=== PATIENT | female | born 1970 | race Caucasian/White ===

== ENCOUNTER 2016-06-20 13:15 | Emergency (ER) | payer MEDICARE, MEDICAID ==
[~2016-06-20] VITALS: Ht 170.2 cm; Wt 104.3 kg
[2016-06-20 13:23] VITALS: BP 162/84; PULSE 102; RESP 18; TEMP 98.1; O2SAT 98
[2016-06-20] MEDS ORDERED: NACL 0.9% 1,000 ML IV ONE (13:45)
[2016-06-20] MEDS ORDERED: ONDANSETRON HCL 4 MG/2 ML VIAL IVP ONE (13:45)
[2016-06-20] MEDS ORDERED: LORazepam 2 MG/ML VIAL (FOR ER USE) IVP ONE (13:45)
[2016-06-20 13:53] LABS: BILIRUBIN,URINE NEGATIVE (NEGATIVE); BLOOD, URINE 3+ (NEGATIVE); CLARITY/URINE SL CLOUDY (CLEAR); COLOR,URINE RED (YELLOW); GLUCOSE,URINE 3+ (NEGATIVE); KETONES,URINE 1+ (NEGATIVE); LEUKOCYTE ESTERASE ,URINE NEGATIVE (NEGATIVE); NITRITE, URINE NEGATIVE (NEGATIVE); PROTEIN URINE 2+ (NEGATIVE)
[2016-06-20 13:57] LABS: BACTERIA,URINE RARE /HPF (None Seen); RBC,URINE >100 /HPF (0-3); WBC,URINE NONE SEEN /HPF (0-3)
[2016-06-20 13:59] LABS: BASOPHILS % (AUTO) 0.4 % (0.0-2.0); EOSINOPHILS # (AUTO) 0.2 K/uL (0.0-0.4); EOSINOPHILS % (AUTO) 1.8 % (0.0-4.0); HEMATOCRIT 40.9 % (36-48); HEMOGLOBIN 13.6 g/dL (12.0-16.0); LYMPHOCYTES % (AUTO) 19.1 % (20.5-51.5); MEAN CORPUSCULAR HEMOGLOBIN 29 pg (27-31); MEAN CORPUSCULAR HGB CONC 33 % (32-36); MEAN CORPUSCULAR VOLUME 86 fL (79.0-98.0); MONOCYTES # (AUTO) 0.6 K/uL (0.0-1.0); MONOCYTES % (AUTO) 5.5 % (1.7-9.3); NEUTROPHILS # (AUTO) 7.4 K/uL (1.8-7.7); NEUTROPHILS % (AUTO) 73.2 % (40.0-70.0); PLATELET COUNT (AUTO) 320 K/uL (130-430); RED BLOOD CELL COUNT(AUTO) 4.74 MIL/uL (4.2-6.2); RED CELL DISTRIBUTION WIDTH 12.4 % (9.0-15.0); WHITE BLOOD COUNT (AUTO) 10.2 K/uL (4.8-10.8)
[2016-06-20 14:07] LABS: CALCIUM 8.7 mg/dL (8.4-11.0); CREATININE 0.87 mg/dL (0.55-1.30); POTASSIUM 3.6 mmol/L (3.5-5.1)
[2016-06-20 14:12] LABS: ALBUMIN 3.9 g/dL (3.4-4.8); TOTAL BILIRUBIN 0.7 mg/dL (0.0-1.0); TOTAL PROTEIN, SERUM 7.9 g/dL (6.4-8.3)
[2016-06-20 15:50] VITALS: BP 135/73; PULSE 88; RESP 12; TEMP 98.5; O2SAT 95
== END 2016-06-20 15:50 | disposition home or self-care (01) ==
LOC: SED 13:15
DX: E11.9 Type 2 diabetes mellitus without complications (principal); I10 Essential (primary) hypertension; Z86.79 Personal history of other diseases of the circulatory system; H81.10 Benign paroxysmal vertigo, unspecified ear
CPT/HCPCS: 36415; 70450; 80053; 81000; 81025; 83735; 85025; 96361; 96374; 96375; 99285; J2060; J2405; J7030

== ENCOUNTER 2016-07-02 11:17 | Emergency (ER) | payer MEDICARE, MEDICAID ==
[~2016-07-02] VITALS: Ht 170.2 cm; Wt 99.8 kg
[2016-07-02 11:20] VITALS: BP 156/87; PULSE 91; RESP 17; TEMP 98.4; O2SAT 100
--- NOTE | 2016-07-02 11:20 | NUR ---
Patient triaged and placed in room 3. VSS and patient appears in no acute distress at this time. MD notified of need for MSE. Report given to Megha MIRZA
--- NOTE | 2016-07-02 11:30 | NUR ---
Patient is here because she was feeling dizzy this morning while taking a shower. She stated that she took her meclizine and was still feeling dizzy after the medications. Patient stated that she was here on the for the same problem. No other injuries/complaints per patient/noted.
[2016-07-02] MEDS ORDERED: MECLIZINE HCL 25 MG TABLET (ANITVERT) PO ONE (11:45)
[2016-07-02] MEDS ORDERED: ACETAMINOPHEN 500 MG TABLET PO ONE (11:45)
[2016-07-02] MEDS ORDERED: PROCHLORPERAZINE EDISYLATE 10 MG/2 ML VIAL IM ONE (11:45)
--- NOTE | 2016-07-02 11:57 | NUR ---
SHARRI Vásquez at bedside examining patient.
--- NOTE | 2016-07-02 12:15 | NUR ---
Pt sitting up in bed, denies c/o dizzyness. No needs verbalized at this time.
[2016-07-02 13:40] VITALS: BP 145/86; PULSE 88; RESP 18; TEMP 98.4; O2SAT 100
--- NOTE | 2016-07-02 13:40 | NUR ---
Patient given written and verbal discharge instructions and verbalizes understanding. ER MD discussed with patient the results and treatment provided. Patient in stable condition. ID arm band removed. Rx of Zofran given. Patient educated on pain management and to follow up with PMD. Pain Scale 0/10. Opportunity for questions provided and answered.
== END 2016-07-02 13:40 | disposition home or self-care (01) ==
LOC: SED 11:17
DX: H81.10 Benign paroxysmal vertigo, unspecified ear (principal); F41.9 Anxiety disorder, unspecified; E11.9 Type 2 diabetes mellitus without complications; I10 Essential (primary) hypertension
CPT/HCPCS: 81025; 96372; 99283; J0780; J8597

== ENCOUNTER 2017-03-08 10:35 | Emergency (ER) | payer MEDICARE, MEDICAID ==
[~2017-03-08] VITALS: Ht 170.2 cm; Wt 99.8 kg
[2017-03-08 10:51] VITALS: BP_SYST 160
--- NOTE | 2017-03-08 10:56 | NUR ---
Patient to ER bed 4 to gown for evaluation. Side rails up. Report given to Darwin MIRZA.
--- NOTE | 2017-03-08 11:00 | NUR ---
Pt presents to ED c/o L lower back pain radiating down L leg. Pt denies signifcant med hx. Pt has slow steady gait.
[2017-03-08 11:09] LABS: BILIRUBIN,URINE NEGATIVE (NEGATIVE); BLOOD, URINE NEGATIVE (NEGATIVE); CLARITY/URINE SL HAZY (CLEAR); COLOR,URINE YELLOW (YELLOW); GLUCOSE,URINE 3+ (NEGATIVE); KETONES,URINE TRACE (NEGATIVE); LEUKOCYTE ESTERASE ,URINE NEGATIVE (NEGATIVE); NITRITE, URINE NEGATIVE (NEGATIVE); PROTEIN URINE 1+ (NEGATIVE); UROBILINOGEN,URINE 0.2 (0.2-1.0)
--- NOTE | 2017-03-08 11:10 | NUR ---
ER at bedside examining patient.
--- NOTE | 2017-03-08 11:25 | NUR ---
Pt medicated tolerated well. Will monitor for improvement.
[2017-03-08 11:50] LABS: BACTERIA,URINE MODERATE /HPF (None Seen); RBC,URINE 0-3 /HPF (0-3); WBC,URINE 0-3 /HPF (0-3)
[2017-03-08] MEDS: KETOROLAC TROMETHAMINE 60 MG/2 ML VIAL IM ONE (11:57)
[2017-03-08] MEDS: HYDROcodone/ACETAMIN 5-325 MG TAB (NORCO/ VICODIN) PO ONE (11:57)
[2017-03-08] MEDS: ONDANSETRON 4 MG ODT TAB PO ONE (11:58)
--- NOTE | 2017-03-08 12:00 | NUR ---
Pt reports pain resolving
[2017-03-08 12:15] VITALS: BP_SYST 154
--- NOTE | 2017-03-08 12:15 | NUR ---
Patient given written and verbal discharge instructions and verbalizes understanding. ER MD discussed with patient the results and treatment provided. Patient in stable condition. ID arm band removed. Rx of motrin,tramadol,macrobid,zofran given. Patient educated on pain management and to follow up with PMD. Pain Scale 2. Opportunity for questions provided and answered.
== END 2017-03-08 12:15 | disposition home or self-care (01) ==
LOC: SED 10:35
DX: M54.30 Sciatica, unspecified side (principal); N39.0 Urinary tract infection, site not specified; I10 Essential (primary) hypertension; Z86.79 Personal history of other diseases of the circulatory system
CPT/HCPCS: 81000; 81025; 96372; 99283; J1885; Q0162

== ENCOUNTER 2017-04-13 08:21 | Emergency (ER) | payer OTHER ==
[~2017-04-13] VITALS: Ht 167.6 cm; Wt 99.8 kg
[~2017-04-13 08:21] MED LIST: ALPR2TAB2 PO; CYAN100067 PO; GLIP-172 PO; LOSA100T11 PO; MECL12.584 PO; SIMV10TA2 PO; TRAM50TA92 PO
[2017-04-13 08:26] VITALS: BP_SYST 216
[2017-04-13] MEDS ORDERED: fentaNYL CITRATE/PF 100 MCG/2 ML AMP IVP ONE (09:00)
[2017-04-13] MEDS ORDERED: ONDANSETRON HCL 4 MG/2 ML VIAL IVP ONE (09:00)
[2017-04-13] MEDS ORDERED: KETOROLAC TROMETHAMINE 30 MG VIAL IVP ONE (09:00)
[2017-04-13 09:40] VITALS: BP_SYST 150
== END 2017-04-13 09:40 | disposition home or self-care (01) ==
LOC: SED 08:21
DX: M54.30 Sciatica, unspecified side (principal); I10 Essential (primary) hypertension; E11.9 Type 2 diabetes mellitus without complications; Z79.899 Other long term (current) drug therapy
CPT/HCPCS: 96374; 96375; 99284; J1885; J2405; J3010

== ENCOUNTER 2017-04-17 16:48 | Emergency (ER) | payer OTHER ==
[~2017-04-17] VITALS: Ht 167.6 cm; Wt 99.8 kg
[2017-04-17 17:13] VITALS: BP_SYST 182
--- NOTE | 2017-04-17 18:04 | NUR ---
Patient to ER bed 08 to gown for evaluation. Side rails up. Report given to YUKI Kidd
--- NOTE | 2017-04-17 18:04 | NUR ---
Assumed care of pt. Pt c/o "sciatic pain" that radiates down her left leg. Pt sees a pain management physician and Rx Tramadol and Paoli and states that she takes them q 4 hours to relieve chronic sciatica symptoms. Pt states that she is out of pain medications and referred by pain management doctor to go to ER. Pt states that Toradol helps with pain as well.
--- NOTE | 2017-04-17 18:49 | NUR ---
Dr. Knight at bedside to assess pt.
[2017-04-17] MEDS ORDERED: KETOROLAC TROMETHAMINE 30 MG VIAL IVP ONE (19:00)
--- NOTE | 2017-04-17 19:00 | NUR ---
# 20 gauge angiocath placed to RAC. Use of asceptic technique. Opsite placed over site. Blood return noted. Blood for lab drawn from site. Flushed with 10 cc of normal saline. No evidence of infiltration noted. Patient tolerated well.
--- NOTE | 2017-04-17 19:16 | NUR ---
recieved report from YUKI Kidd. Will assume Care.
[2017-04-17 19:28] LABS: BASOPHILS # (AUTO) 0.1 K/uL (0.0-0.2); BASOPHILS % (AUTO) 0.7 % (0.0-2.0); EOSINOPHILS # (AUTO) 0.2 K/uL (0.0-0.4); EOSINOPHILS % (AUTO) 1.6 % (0.0-4.0); HEMOGLOBIN 13.4 g/dL (12.0-16.0); LYMPHOCYTES # (AUTO) 3.3 K/uL (1.0-5.5); LYMPHOCYTES % (AUTO) 26.9 % (20.5-51.5); MEAN CORPUSCULAR HEMOGLOBIN 28 pg (27-31); MEAN CORPUSCULAR HGB CONC 33 % (32-36); MEAN CORPUSCULAR VOLUME 86 fL (79.0-98.0); MONOCYTES # (AUTO) 1.2 K/uL (0.0-1.0); MONOCYTES % (AUTO) 9.5 % (1.7-9.3); NEUTROPHILS # (AUTO) 7.6 K/uL (1.8-7.7); NEUTROPHILS % (AUTO) 61.3 % (40.0-70.0); PLATELET COUNT (AUTO) 371 K/uL (130-430); RED BLOOD CELL COUNT(AUTO) 4.76 MIL/uL (4.2-6.2); RED CELL DISTRIBUTION WIDTH 13.6 % (9.0-15.0); WHITE BLOOD COUNT (AUTO) 12.4 K/uL (4.8-10.8)
[2017-04-17 19:30] LABS: POTASSIUM 3.6 mmol/L (3.5-5.1)
[2017-04-17 19:31] LABS: CREATININE 0.68 mg/dL (0.55-1.30)
[2017-04-17 19:41] LABS: TOTAL BILIRUBIN 0.3 mg/dL (0.0-1.0)
[2017-04-17 19:42] LABS: ALBUMIN 3.8 g/dL (3.4-4.8)
--- NOTE | 2017-04-17 20:32 | NUR ---
updated patient. voiced no complaints. Will continue to monitor
[2017-04-17 20:56] LABS: BILIRUBIN,URINE NEGATIVE (NEGATIVE); BLOOD, URINE NEGATIVE (NEGATIVE); CLARITY/URINE CLEAR (CLEAR); COLOR,URINE YELLOW (YELLOW); GLUCOSE,URINE NEGATIVE (NEGATIVE); KETONES,URINE NEGATIVE (NEGATIVE); LEUKOCYTE ESTERASE ,URINE NEGATIVE (NEGATIVE); NITRITE, URINE NEGATIVE (NEGATIVE); PROTEIN URINE NEGATIVE (NEGATIVE); UROBILINOGEN,URINE 0.2 (0.2-1.0)
--- NOTE | 2017-04-17 21:40 | NUR ---
ER at bedside re examining patient.
[2017-04-17 22:00] VITALS: BP_SYST 160
== END 2017-04-17 22:00 | disposition home or self-care (01) ==
LOC: SED 16:48
DX: M54.32 Sciatica, left side (principal); E11.9 Type 2 diabetes mellitus without complications; I10 Essential (primary) hypertension; Z86.79 Personal history of other diseases of the circulatory system; Z79.899 Other long term (current) drug therapy
CPT/HCPCS: 36415; 80053; 81003; 81025; 85025; 96374; 99284; J1885